=== PATIENT | male | born 2000 | race Caucasian/White ===

== ENCOUNTER 2021-11-02 10:55 | Emergency (ER) | payer BC, OTHER ==
[2021-11-02] MEDS ORDERED: Sodium Chloride 0.9% 2.5 ML Syringe FLUSH PRN (11:06)
[2021-11-02] MEDS ORDERED: Sodium Chloride 0.9% 10 ML Syringe FLUSH PRN (11:06)
[2021-11-02] MEDS ORDERED: Ibuprofen 800 MG Tab PO ONE (11:38)
[2021-11-02 11:52] LABS: BLOOD UREA NITROGEN,BUN 12 mg/dL (7.0-18.0); CARBON DIOXIDE,CO2 28.2 mmol/L (21.0-32.0); CHLORIDE,CL 100 mmol/L (98-107); GLUCOSE RANDOM 98 mg/dL (74-106); LIPASE 62 U/L (73-393); POTASSIUM,K 4.3 mmol/L (3.5-5.1); SODIUM,NA 136 mmol/L (136-148)
[2021-11-02 12:29] LABS: CORONAVIRUS COVID-19 NAA NEGATIVE (NEGATIVE); INFLUENZA A NAA NEGATIVE (NEGATIVE); INFLUENZA B NAA NEGATIVE (NEGATIVE)
== END 2021-11-02 13:21 | disposition home or self-care (01) ==
LOC: MW.ED 10:55
DX: I30.9 Acute pericarditis, unspecified (principal); Z88.0 Allergy status to penicillin; Z20.822 Contact with and (suspected) exposure to COVID-19
CPT/HCPCS: 0240U; 36415; 71046; 80053; 83690; 84484; 85025; 85652; 86140; 93005; 99285; A9270; 93010; 99284

== ENCOUNTER 2022-08-18 11:41 | Emergency (ER) | payer BC ==
[2022-08-18] MEDS ORDERED: Oxymetazoline 0.05% Nasal Spray 30 ML Bottle NAS STA (12:34)
[2022-08-18] MEDS ORDERED: Sodium Chloride 0.9% 1,000 ML IV STA (13:20)
== END 2022-08-18 14:50 | disposition home or self-care (01) ==
LOC: MW.ED 11:41
DX: R04.0 Epistaxis (principal); Z88.0 Allergy status to penicillin; Z86.16 Personal history of COVID-19
CPT/HCPCS: 96360; 99283; A9270; J7030